=== PATIENT | female | born 1980 | race American Indian/Alaskan Native ===

== ENCOUNTER → 2017-05-12 | Outpatient (CLI) | payer OTHER ==
[~2017-05-12] MED LIST: Advil200 M1
[2017-05-15 01:40] LABS: HPV Genotype 16 Not Detected (NOTDET); HPV Genotype 18 Not Detected (NOTDET)
[2017-05-23 13:35] LABS: HPV High Risk Other Not Detected (NOTDET)
== END | disposition home or self-care (01) ==
LOC: LAB 15:01
PROVIDERS: Obstetrics & Gynecology
DX: R87.610 Atypical squamous cells of undetermined significance on cytologic smear of cervix (ASC-US) (principal)
CPT/HCPCS: 87624; 88142

== ENCOUNTER → 2018-01-04 | Outpatient (CLI) | payer OTHER | END | disposition home or self-care (01) | LOC: PLD 13:06 → LAB SHORT 13:06 | DX: R93.89 Abnormal findings on diagnostic imaging of other specified body structures (principal); N92.6 Irregular menstruation, unspecified | CPT/HCPCS: 88305 ==

== ENCOUNTER 2018-07-13 07:46 | Day surgery (SDC) | payer OTHER ==
[~2018-07-13] VITALS: Ht 167.6 cm; Wt 86.8 kg
[2018-07-13] MEDS ORDERED: Celexa10 MG PO (08:26)
[2018-07-13] MEDS ORDERED: METF500 PO (08:26)
[2018-07-13] MEDS ORDERED: CLON.5 PO (08:27)
[2018-07-13] MEDS ORDERED: ARNICA LG1 GM PO (08:27)
[2018-07-13] MEDS ORDERED: Loratadine10 MG PO (08:28)
--- NOTE | 2018-07-13 08:35 | NUR ---
07/13/18 0835 Lety Beard V PT RESTING IN BED, SIDE RAILS IN PLACE, CALL LIGHT WITHIN REACH, VSS. PT TEACHING COMPLETED. PT'S FAMILY AT BEDSIDE. PT DENIES DISCOMFORT AND QUESTIONS AT THIS TIME.
--- NOTE | 2018-07-13 11:04 | NUR ---
07/13/18 1103 Karol Lord SCRATCHES ON THE DORSAL ASPECT OF THE RIGHT FOOT
== END 2018-07-13 13:45 | disposition home or self-care (01) ==
LOC: ORSCSDS 07:46
PROVIDERS: Orthopaedic Surgery
PROC: 0MQN4ZZ Repair Right Knee Bursa and Ligament, Percutaneous Endoscopic Approach (ICD-10-PCS; principal; 2018-07-13 09:00)
DX: S83.511A Sprain of anterior cruciate ligament of right knee, initial encounter (principal); S83.241A Other tear of medial meniscus, current injury, right knee, initial encounter; Z79.899 Other long term (current) drug therapy; F41.9 Anxiety disorder, unspecified
CPT/HCPCS: J0171; J0690; J1100; J1885; J2250; J2405; J2704; J2795; J3010; J7120

== ENCOUNTER 2018-10-10 12:39 | Day surgery (SDC) | payer OTHER ==
[~2018-10-10] VITALS: Ht 172.7 cm; Wt 81.2 kg
[~2018-10-10 12:39] MED LIST changes: +ARNICA LG1 GM PO; +CLON.5 PO; +Celexa10 MG PO; +Loratadine10 MG PO; +METF500 PO
--- NOTE | 2018-10-10 14:22 | NUR ---
10/10/18 1422 Diomedes Baez SPECIAL CARE TAKEN WHEN RIGHT LEG PLACED IN STIRRUP. RIGHT KNEE SUPPORTED DURING ENTIRE PLACEMENT.
== END 2018-10-10 15:45 | disposition home or self-care (01) ==
LOC: ORSCSDS 12:39
PROVIDERS: Obstetrics & Gynecology Gynecology
PROC: 0UDB8ZX Extraction of Endometrium, Via Natural or Artificial Opening Endoscopic, Diagnostic (ICD-10-PCS; principal; 2018-10-10 14:00)
DX: N92.0 Excessive and frequent menstruation with regular cycle (principal); N94.6 Dysmenorrhea, unspecified; N94.3 Premenstrual tension syndrome; I10 Essential (primary) hypertension; G47.33 Obstructive sleep apnea (adult) (pediatric); F43.10 Post-traumatic stress disorder, unspecified; Z79.899 Other long term (current) drug therapy; E28.2 Polycystic ovarian syndrome; Z87.891 Personal history of nicotine dependence
CPT/HCPCS: 82947; 88305; J0690; J1100; J2250; J2405; J2704; J3010; J7120

== ENCOUNTER → 2020-11-04 | Outpatient (CLI) | payer OTHER ==
[2020-11-06 17:10] LABS: CORONAVIRUS (COVID19) CSH-NRL Negative (Negative)
== END ==
LOC: LAB 15:44 → LAB SHORT 15:44
PROVIDERS: Physician Assistant
DX: Z20.822 Contact with and (suspected) exposure to COVID-19 (principal)
CPT/HCPCS: U0003

== ENCOUNTER 2021-02-13 18:57 | Inpatient (IN) | payer OTHER ==
[~2021-02-13] VITALS: Ht 175.3 cm; Wt 110.7 kg
[~2021-02-13 18:57] MED LIST changes: -AMOCLA875 PO; -CLON1 PO; -INDO50 PO; -ZYRTEC10 M2 PO
[2021-02-13 19:36] LABS: BASOPHILS ABSOLUTE AUTO 0.07 K/mm3 (0.00-0.23); BASOPHILS PERCENT AUTO 1 % (0-2); EOSINOPHILS ABSOLUTE AUTO 0.36 K/mm3 (0.00-0.68); EOSINOPHILS PERCENT AUTO 3 % (0-6); Hematocrit 42.8 % (33.0-51.0); Hemoglobin 14.7 g/dL (11.5-16.0); IMMATURE GRAN ABSOLUTE AUTO 0.04 K/mm3 (0.00-0.10); IMMATURE GRAN PERCENT AUTO 0 % (0-1); LYMPHOCYTES ABSOLUTE AUTO 3.14 K/mm3 (0.84-5.20); LYMPHOCYTES PERCENT AUTO 25 % (21-46); MONOCYTES ABSOLUTE AUTO 1.06 K/mm3 (0.16-1.47); MONOCYTES PERCENT AUTO 8 % (4-13); Mean Corpuscular HGB 32.7 pg (26.0-34.0); Mean Corpuscular HGB Conc 34.3 g/dL (31.5-36.5); Mean Corpuscular Volume 95 fL (80-100); Mean Platelet Volume 9.4 fL (9.1-12.4); NEUTROPHILS ABSOLUTE AUTO 8.08 K/mm3 (1.96-9.15); NEUTROPHILS PERCENT AUTO 64 % (41-73); Platelet Count 301 K/mm3 (150-400); RDW Coefficient Variation 12.5 % (11.7-14.2); RDW Standard Deviation 43.9 fL (35.1-46.3); Red Blood Cell Count 4.49 M/mm3 (3.80-5.20); White Blood Cell Count 12.75 K/mm3 (4.00-11.30)
[2021-02-13 20:28] LABS: C-REACTIVE PROTEIN, EXT RANGE 0.587 mg/dL (0.000-0.300)
[2021-02-13 20:30] LABS: Alanine Aminotransfer (ALT/SGP 51 U/L (12-78); Albumin, Blood 3.9 g/dL (3.4-5.0); Albumin/Globulin Ratio 1.3 (0.8-1.8); Alk Phos 77 U/L (50-136); Anion Gap 5 mmol/L (6-16); Aspartate Aminotrans (AST/SGOT 21 U/L (12-37); Bilirubin, Total 0.3 mg/dL (0.1-1.0); Blood Urea Nitrogen 16 mg/dL (8-24); Bun/Creatinine Ratio 23.8 (12.0-20.0); CO2, Blood 25 mmol/L (21-32); Calcium, Blood 8.9 mg/dL (8.5-10.1); Chloride, Blood 108 mmol/L (98-108); Creatinine, Blood 0.67 mg/dL (0.40-1.00); Globulin, Blood 3.1 g/dL (2.2-4.0); Glomerular Filtration Rate >60 (60-); Glucose, Blood 93 mg/dL (70-99); Potassium, Blood 4.2 mmol/L (3.5-5.5); Sodium, Blood 138 mmol/L (136-145)
[2021-02-13] MEDS ORDERED: ZYRTEC10 M2 PO (23:30)
[2021-02-13] MEDS ORDERED: CLON1 PO (23:33)
[2021-02-14 05:07] LABS: BASOPHILS ABSOLUTE AUTO 0.05 K/mm3 (0.00-0.23); BASOPHILS PERCENT AUTO 1 % (0-2); EOSINOPHILS ABSOLUTE AUTO 0.36 K/mm3 (0.00-0.68); EOSINOPHILS PERCENT AUTO 4 % (0-6); Hematocrit 39.8 % (33.0-51.0); Hemoglobin 13.4 g/dL (11.5-16.0); IMMATURE GRAN ABSOLUTE AUTO 0.04 K/mm3 (0.00-0.10); IMMATURE GRAN PERCENT AUTO 0 % (0-1); LYMPHOCYTES ABSOLUTE AUTO 2.67 K/mm3 (0.84-5.20); LYMPHOCYTES PERCENT AUTO 29 % (21-46); MONOCYTES ABSOLUTE AUTO 0.71 K/mm3 (0.16-1.47); MONOCYTES PERCENT AUTO 8 % (4-13); Mean Corpuscular HGB 32.4 pg (26.0-34.0); Mean Corpuscular HGB Conc 33.7 g/dL (31.5-36.5); Mean Corpuscular Volume 96 fL (80-100); Mean Platelet Volume 9.6 fL (9.1-12.4); NEUTROPHILS ABSOLUTE AUTO 5.55 K/mm3 (1.96-9.15); NEUTROPHILS PERCENT AUTO 59 % (41-73); Platelet Count 258 K/mm3 (150-400); RDW Coefficient Variation 12.6 % (11.7-14.2); RDW Standard Deviation 44.4 fL (35.1-46.3); Red Blood Cell Count 4.14 M/mm3 (3.80-5.20); White Blood Cell Count 9.38 K/mm3 (4.00-11.30)
[2021-02-14 05:50] LABS: Alanine Aminotransfer (ALT/SGP 49 U/L (12-78); Albumin, Blood 3.1 g/dL (3.4-5.0); Albumin/Globulin Ratio 1.1 (0.8-1.8); Alk Phos 62 U/L (50-136); Anion Gap 6 mmol/L (6-16); Aspartate Aminotrans (AST/SGOT 24 U/L (12-37); Bilirubin, Total 0.7 mg/dL (0.1-1.0); Blood Urea Nitrogen 12 mg/dL (8-24); Bun/Creatinine Ratio 16.4 (12.0-20.0); CO2, Blood 26 mmol/L (21-32); Calcium, Blood 8.3 mg/dL (8.5-10.1); Chloride, Blood 108 mmol/L (98-108); Creatinine, Blood 0.73 mg/dL (0.40-1.00); Globulin, Blood 2.7 g/dL (2.2-4.0); Glomerular Filtration Rate >60 (60-); Glucose, Blood 101 mg/dL (70-99); Sodium, Blood 140 mmol/L (136-145); Total Protein, Blood 5.8 g/dL (6.4-8.2)
--- NOTE | 2021-02-14 07:34 | NUR ---
SHIFT SUMMARY PT ARRIVED TO THE FLOOR VIA WC, INDEPENDENT IN ROOM, A/O X4, ABLE TO MAKE NEEDS KNOWN, REPORTS PAIN IN L HAND WHICH IS REDUCED c SUBLIMAZE AND TORADOL, ORHO CONSULT THIS AM, ABX ORDERED AND INFUSING. NO ACUTE EVENTS THIS SHIFT, CALL LIGHT IN REACH, REPORT GIVEN TO DAY RN.
--- NOTE | 2021-02-14 17:05 | NUR ---
SUMMARY: NO CHANGE TODAY. VSS, A/O, INDEP IN ROOM. CONTINUED SWELLING AND SOME PAIN AT L HAND. PT REPORTS PAIN IS DECREASING WITH ANTIBIOTICS. PAIN MEDICATION GIVEN PRN. PLAN IS FOR CONTINUED ANTIBIOTICS AND NPO AT 0000, DR. RAMIREZ TO REASSESS IN MORNING FOR POSSIBLE SURGERY. NO SAFETY CONCERNS.
[2021-02-15 04:01] LABS: Hematocrit 38.5 % (33.0-51.0); Hemoglobin 13.1 g/dL (11.5-16.0); Mean Corpuscular HGB 32.4 pg (26.0-34.0); Mean Corpuscular Volume 95 fL (80-100); Mean Platelet Volume 9.6 fL (9.1-12.4); Platelet Count 247 K/mm3 (150-400); RDW Coefficient Variation 12.1 % (11.7-14.2); RDW Standard Deviation 42.5 fL (35.1-46.3); Red Blood Cell Count 4.04 M/mm3 (3.80-5.20)
[2021-02-15 05:06] LABS: Alanine Aminotransfer (ALT/SGP 49 U/L (12-78); Alk Phos 61 U/L (50-136); Anion Gap 5 mmol/L (6-16); Aspartate Aminotrans (AST/SGOT 23 U/L (12-37); Bilirubin, Total 0.6 mg/dL (0.1-1.0); Blood Urea Nitrogen 12 mg/dL (8-24); CO2, Blood 24 mmol/L (21-32); Calcium, Blood 8.4 mg/dL (8.5-10.1); Chloride, Blood 110 mmol/L (98-108); Creatinine, Blood 0.71 mg/dL (0.40-1.00); Globulin, Blood 2.9 g/dL (2.2-4.0); Glomerular Filtration Rate >60 (60-); Glucose, Blood 106 mg/dL (70-99); Potassium, Blood 4.1 mmol/L (3.5-5.5); Sodium, Blood 139 mmol/L (136-145); Total Protein, Blood 5.9 g/dL (6.4-8.2)
--- NOTE | 2021-02-15 06:54 | NUR ---
ALERT AND ORIENTED X'S 4. MEDICATED FOR PAIN MANAGEMENT DUE TO LEFT HAND PAIN, EFFECTIVE. EDEMA TO LEFT HAND DECREASING, PATIENT ABLE TO BEND FINGERS. SAFETY MAINTAIED, CALL CEDILLO IN REACH.
[2021-02-15 10:32] LABS: Vancomycin, Trough 11.4 ug/mL (5.0-10.0)
[2021-02-15] MEDS ORDERED: AMOCLA875 PO (13:34)
[2021-02-15] MEDS ORDERED: INDO50 PO (13:35)
--- NOTE | 2021-02-15 15:12 | NUR ---
DISCHARGE: PACKET PRINTED AND PT EDUCATED. IV DC'D WNL. PT GIVEN ABBIE WRAPS FOR HOME. MEDS FAXED TO [facility] ON [address]. PT LEFT UNIT AT ABOUT 1420, DENIED NEED FOR WHEELCHAIR. LEFT ON FOOT WITH SPOUSE
== END 2021-02-15 14:44 | disposition home or self-care (01) | DRG 558 ==
LOC: ER 18:57 → SURS 18:58
PROVIDERS: Internal Medicine; Physician Assistant; ADMIT Internal Medicine
DX: M65.842 Other synovitis and tenosynovitis, left hand (principal); F32.A Depression, unspecified; F41.9 Anxiety disorder, unspecified; E66.9 Obesity, unspecified; S60.411A Abrasion of left index finger, initial encounter; E11.9 Type 2 diabetes mellitus without complications; F17.210 Nicotine dependence, cigarettes, uncomplicated; Z68.36 Body mass index [BMI] 36.0-36.9, adult; Z90.49 Acquired absence of other specified parts of digestive tract; Z98.890 Other specified postprocedural states; Z98.891 History of uterine scar from previous surgery; Z88.8 Allergy status to other drugs, medicaments and biological substances; Z79.84 Long term (current) use of oral hypoglycemic drugs; Z79.899 Other long term (current) drug therapy; W55.03XA Scratched by cat, initial encounter
CPT/HCPCS: 36415; 73201; 76882; 80053; 80202; 84443; 85025; 85027; 85651; 86038; 86140; 86430; 96365; 96375; 99284-25; A9270; G0378; J0696; J1885; J2270; J2405; J2543; J3010; J3370; J7030; J7050; Q9967

== ENCOUNTER → 2021-02-13 | Outpatient (CLI) | payer OTHER ==
[~2021-02-13] MED LIST changes: +AMOCLA875 PO; +CLON1 PO; +INDO50 PO; +ZYRTEC10 M2 PO
[2021-02-13 17:22] LABS: BASOPHILS ABSOLUTE AUTO 0.04 K/mm3 (0.00-0.23); BASOPHILS PERCENT AUTO 0 % (0-2); EOSINOPHILS ABSOLUTE AUTO 0.34 K/mm3 (0.00-0.68); EOSINOPHILS PERCENT AUTO 3 % (0-6); Hematocrit 41.9 % (33.0-51.0); Hemoglobin 14.2 g/dL (11.5-16.0); IMMATURE GRAN ABSOLUTE AUTO 0.06 K/mm3 (0.00-0.10); IMMATURE GRAN PERCENT AUTO 1 % (0-1); LYMPHOCYTES ABSOLUTE AUTO 2.36 K/mm3 (0.84-5.20); LYMPHOCYTES PERCENT AUTO 21 % (21-46); MONOCYTES ABSOLUTE AUTO 1.08 K/mm3 (0.16-1.47); MONOCYTES PERCENT AUTO 10 % (4-13); Mean Corpuscular HGB 32.3 pg (26.0-34.0); Mean Corpuscular HGB Conc 33.9 g/dL (31.5-36.5); Mean Corpuscular Volume 95 fL (80-100); Mean Platelet Volume 9.3 fL (9.1-12.4); NEUTROPHILS ABSOLUTE AUTO 7.53 K/mm3 (1.96-9.15); NEUTROPHILS PERCENT AUTO 66 % (41-73); Platelet Count 301 K/mm3 (150-400); RDW Coefficient Variation 12.6 % (11.7-14.2); RDW Standard Deviation 44.1 fL (35.1-46.3); White Blood Cell Count 11.41 K/mm3 (4.00-11.30)
[2021-02-13 17:36] LABS: Alanine Aminotransfer (ALT/SGP 57 U/L (12-78); Albumin, Blood 3.9 g/dL (3.4-5.0); Albumin/Globulin Ratio 1.3 (0.8-1.8); Alk Phos 82 U/L (40-126); Anion Gap 10 mmol/L (6-16); Aspartate Aminotrans (AST/SGOT 21 U/L (12-37); Bilirubin, Total 0.3 mg/dL (0.1-1.0); Blood Urea Nitrogen 16 mg/dL (8-24); Bun/Creatinine Ratio 21.1 (12.0-20.0); CO2, Blood 27 mmol/L (21-32); Calcium, Blood 8.9 mg/dL (8.5-10.1); Chloride, Blood 103 mmol/L (98-108); Creatinine, Blood 0.76 mg/dL (0.40-1.00); Glomerular Filtration Rate >60 (60-); Glucose, Blood 94 mg/dL (70-99); Sodium, Blood 140 mmol/L (136-145); Total Protein, Blood 6.9 g/dL (6.4-8.2); Uric Acid, Blood 4.9 mg/dL (2.6-6.0)
== END | disposition home or self-care (01) ==
LOC: LAB 17:16 → LAB SHORT 17:16
PROVIDERS: Physician Assistant
DX: M79.645 Pain in left finger(s) (principal)
CPT/HCPCS: 80053; 84550; 85025

== ENCOUNTER → 2021-03-13 | Outpatient (CLI) | payer OTHER ==
[~2021-03-13] MED LIST changes: +AMOCLA875 PO; +CLON1 PO; +INDO50 PO; +ZYRTEC10 M2 PO
[2021-03-15 12:07] LABS: CHLAMYDIA BY NAA Negative (Negative); GONOCOCCUS BY NAA Negative (Negative); TRICH VAG BY NAA Negative (Negative)
== END | disposition home or self-care (01) ==
LOC: LAB SHORT 17:02
PROVIDERS: Family Medicine
DX: M06.4 Inflammatory polyarthropathy (principal)
CPT/HCPCS: 87491; 87591; 87661

== ENCOUNTER 2024-12-03 08:04 | Day surgery (SDC) | payer OTHER ==
[~2024-12-03] VITALS: Ht 172.7 cm; Wt 93.5 kg
[~2024-12-03 08:04] MED LIST changes: +CeFAZolin Sodium 2,000 MG VIAL ONE
[2024-12-03] MEDS ORDERED: Lisinopril2.5 MG (08:36)
[2024-12-03] MEDS ORDERED: NEURONTIN300 MG (08:37)
[2024-12-03] MEDS ORDERED: Mobic7.5 MG (08:37)
[2024-12-03] MEDS ORDERED: TIZA4 (08:38)
[2024-12-03] MEDS ORDERED: NS 500 ML IV ONE (08:57)
--- NOTE | 2024-12-03 09:03 | NUR ---
12/03/24 0903 Evita Aguilar PT TOOK PUT A NICOTINE POUCH IN PREOP. BOTH AND ARE AWARE. OKAY TO PROCEED.
[2024-12-03 09:26] VITALS: BP 176/67
--- NOTE | 2024-12-03 09:59 | NUR ---
12/03/24 0959 Aubrey Michaels PT DENIES PAIN AND NAUSEA AT THIS TIME. PT AGREEABLE TO D/C HOME WITH SPOUSE.
== END 2024-12-03 09:59 | disposition home or self-care (01) ==
LOC: ORSCSDS 08:04
PROVIDERS: Orthopaedic Surgery
PROC: 01N54ZZ Release Median Nerve, Percutaneous Endoscopic Approach (ICD-10-PCS; principal; 2024-12-03 09:00)
DX: G56.03 Carpal tunnel syndrome, bilateral upper limbs (principal); I10 Essential (primary) hypertension; F41.9 Anxiety disorder, unspecified; F32.A Depression, unspecified; G47.33 Obstructive sleep apnea (adult) (pediatric); Z79.899 Other long term (current) drug therapy; F17.210 Nicotine dependence, cigarettes, uncomplicated
CPT/HCPCS: J0690; J7120